=== PATIENT | female | born 1965 | race Caucasian/White ===

== ENCOUNTER → 2021-06-29 | Outpatient (CLI) | payer OTHER ==
--- NOTE | 2021-06-29 10:40 | KCIC ---
Exam Date: 06/29/2021 9:[address] SCREENING FOR CORONARY ARTERY Indication: Reason: Family hx. heart disease. Pt. is hypertensive, has hyperlipidemia. / Spl. Instru ctions: / History: . TECHNIQUE: CT of the chest was performed without contrast per coronary calcium scoring. Refer to the worksheets for full details. One or more of the following dose reduction techniques were utilized: *Automated exposure control (AEC) *Adjustment of mA and/or kV according to patient size *Use of iterative reconstruction technique *CT scan done according to ALARA, or ALARA/IMAGE GENTLY FINDINGS: CT of the chest was performed for coronary calcium scoring. Refer to the worksheets for full details. Coronary calcium scoring is as follows: LMA: 0. LAD: 0. LCX: 0. RCA: 6.8. PDA: 0. Total: 6.8. The lungs are partially imaged. Visualized central airways are patent. There is no focal consolida tion, pleural effusion or pneumothorax. No lymphadenopathy is seen. Limited images of the upper abdomen demonstrate no focal abnormality. Degenerative changes are seen in the spine. IMPRESSION: Coronary calcium score 6.8. This corresponds to minimal plaque burden and low cardiovascular risk, wi th less than 10% chance of having heart disease. Electronically signed by: Alfonso Sharif MD (06/29/2021 10:38 AM) [id number]
== END ==
LOC: KCIC CT 08:58
PROVIDERS: ATTEND Family Medicine
DX: E78.5 Hyperlipidemia, unspecified (principal); M47.819 Spondylosis without myelopathy or radiculopathy, site unspecified; Z82.49 Family history of ischemic heart disease and other diseases of the circulatory system
CPT/HCPCS: 75571